=== PATIENT | male | born 1970 | race Two or more races ===

== ENCOUNTER 2020-09-24 17:44 | Emergency (ER) | payer OTHER ==
[~2020-09-24] VITALS: Ht 175.3 cm; Wt 74.4 kg
--- NOTE | 2020-09-24 17:44 | NUR ---
PT [facility] AND [employer] FROM THE [facility] C/O BIZARRE BEHAVIOR "HE WAS WALKING IN THE STREET WITH A TOY GUN" PT IS AAOX3 [place] SPEAKING ONLY, NOT IN RESPIRATORY DISTRESS, V/S STABLE, KEPT RESTED AND COMFORTABLE.
--- NOTE | 2020-09-24 17:53 | NUR ---
SECURITY AT BEDSIDE FOR WANDING.
--- NOTE | 2020-09-24 17:58 | NUR ---
LISSETT AGUILERA AT BEDSIDE FOR EVAL.
[2020-09-24] MEDS ORDERED: TDAP [DIPH/PERTUSSIS/TET] 0.5 ML VIAL IM ONE ×2 (18:30)
[2020-09-24] MEDS ORDERED: ACETAMINOPHEN ES 500 MG TABLET PO ONE (18:30)
[2020-09-24] MEDS ORDERED: LORAZEPAM 1 MG TABLET PO ONE (18:30)
[2020-09-24] MEDS ORDERED: ACETAMINOPHEN ES 500 MG TABLET ONE (18:31)
[2020-09-24] MEDS ORDERED: LORAZEPAM 1 MG TABLET ONE (18:31)
--- NOTE | 2020-09-24 18:31 | NUR ---
URINAL GIVEN BUT UNABLE TO PROVIDE URINE SPECIMEN THIS TIME.
[2020-09-24 18:44] LABS: BASOPHILS % (AUTO) 0.4 % (0.0-2.0); EOSINOPHILS % (AUTO) 3.8 % (0.0-6.0); HEMATOCRIT 37 % (39-51); HEMOGLOBIN 12.3 g/dL (13.5-17.5); LYMPHOCYTES % (AUTO) 27.2 % (20.0-44.0); MEAN CORPUSCULAR HGB CONC 33 g/dl (31.0-36.0); MEAN CORPUSCULAR VOLUME 87 fL (80-96); MONOCYTES # (AUTO) 0.9 /CMM (0.1-1.30); MONOCYTES % (AUTO) 11.8 % (2.0-12.0); NEUTROPHILS # (AUTO) 4.3 /CMM (1.8-8.9); NEUTROPHILS % (AUTO) 56.8 % (43.0-81.0); PLATELET COUNT (AUTO) 293 /CMM (150-450); RED BLOOD CELL COUNT(AUTO) 4.28 MIL/uL (4.5-6.0); WHITE BLOOD COUNT (AUTO) 7.5 K/uL (4.3-11.0)
[2020-09-24 19:01] LABS: CALCIUM, SERUM 8.6 mg/dL (8.5-10.1); CARBON DIOXIDE 30 mmol/L (21-32); CHLORIDE 103 mmol/L (98-107); CREATININE 0.6 mg/dL (0.6-1.3); GLUCOSE 91 mg/dL (74-106); POTASSIUM 3.9 mmol/L (3.5-5.1); SODIUM SERUM 140 mmol/L (136-145); UREA NITROGEN, BLOOD 19 mg/dL (7-18)
--- NOTE | 2020-09-24 19:05 | NUR ---
URINE SPECIMEN COLLECTED AND SENT TO LAB.
[2020-09-24 19:06] LABS: ACETAMINOPHEN 3 ug/ml (10-30); ALANINE AMINOTRANSFERASE 31 U/L (12-78); ALBUMIN 3.7 g/dL (3.4-5.0); ALCOHOL, BLOOD < 3 mg/dL (0-0); ALKALINE PHOSPHATASE 88 U/L (46-116); ASPARTATE AMINOTRANSFERASE 23 U/L (15-37); BILIRUBIN,DIRECT 0.1 mg/dL (0.0-0.2); BILIRUBIN,TOTAL 0.4 mg/dL (0.2-1.0); TOTAL PROTEIN, SERUM 7.6 g/dL (6.4-8.2)
--- NOTE | 2020-09-24 19:22 | NUR ---
CALLED LAB FOR URINE FOLLOW UP
[2020-09-24 19:38] LABS: BILIRUBIN,URINE NEGATIVE (NEGATIVE); COLOR,URINE YELLOW (YELLOW); LEUKOCYTE ESTERASE ,URINE NEGATIVE (NEGATIVE); NITRITE, URINE NEGATIVE (NEGATIVE); PH,URINE 6.5 (5.0-8.0); PROTEIN,URINE NEGATIVE (NEGATIVE); UGLUCOSE NEGATIVE (NEGATIVE); UROBILINOGEN,URINE 0.2 EU/dL (0.2)
--- NOTE | 2020-09-24 19:48 | NUR ---
covid swab done and sent it to the lab
--- NOTE | 2020-09-24 20:00 | NUR ---
PT ASLEEP BUT EASILY AROUSABLE TO TOUCH. VSS. NAD NOTED. PT CONNECTED TO THE MONITOR AND POX
--- NOTE | 2020-09-24 20:28 | NUR ---
covid negative per lab
[2020-09-24] MEDS ORDERED: OLANZAPINE 5 MG TABLET PO ONE (20:30)
[2020-09-24] MEDS ORDERED: OLANZAPINE 10 MG VIAL IM ONE ×2 (21:53→22:00)
--- NOTE | 2020-09-24 23:41 | NUR ---
PT ASLEEP. EASILY AROUSABLE TO MECHANICAL STIMULI. SITTER AT BEDSIDE FOR SAFETY. WILL CONTINUE TO MONITOR PT
--- NOTE | 2020-09-25 01:45 | NUR ---
PT AWAKE, URINATED 500 CC. SITTER AT BEDSIDE FOR SAEFTY. WILL CONTINUE TO MONITOR
--- NOTE | 2020-09-25 05:41 | NUR ---
TRIAL OF AMBULATION DONE. PATIENT AMBULATORY W/ STEADY GAIT.
[2020-09-25 07:06] VITALS: BP 122/64
--- NOTE | 2020-09-25 07:06 | NUR ---
Patient discharged to home in stable condition. Written and verbal after care instructions given. Patient verbalizes understanding of instruction.
== END 2020-09-25 07:07 | disposition home or self-care (01) ==
LOC: ER 17:46 → EDBD 17:46 → ER 09-25 07:07
DX: F15.10 Other stimulant abuse, uncomplicated (principal); Z59.0 Homelessness; S30.1XXA Contusion of abdominal wall, initial encounter; Y35.093A Legal intervention involving other firearm discharge, suspect injured, initial encounter; Y92.410 Unspecified street and highway as the place of occurrence of the external cause; S80.812A Abrasion, left lower leg, initial encounter; Y35.043A Legal intervention involving injury by rubber bullet, suspect injured, initial encounter; Z98.890 Other specified postprocedural states; F23 Brief psychotic disorder; D64.9 Anemia, unspecified; Z82.49 Family history of ischemic heart disease and other diseases of the circulatory system; I69.198 Other sequelae of nontraumatic intracerebral hemorrhage; G93.89 Other specified disorders of brain; Z20.822 Contact with and (suspected) exposure to COVID-19
CPT/HCPCS: 36415; 70450; 80048; 80076; 80299; 80307; 80320; 81003; 83605; 85025; 87426; 90471; 90715; 96372; 99284; C9803; J3490; G0480